=== PATIENT | male | born 1950 | race Caucasian/White ===

== ENCOUNTER → 2016-03-23 | Outpatient (CLI) | payer MEDICARE, OTHER ==
[~2016-03-23] MED LIST: CITA10TA4 PO
== END ==
LOC: CLAB 09:02
PROVIDERS: ATTEND Specialist
DX: B18.2 Chronic viral hepatitis C (principal); G47.00 Insomnia, unspecified; K58.9 Irritable bowel syndrome, unspecified; R53.83 Other fatigue; C61 Malignant neoplasm of prostate; K40.30 Unilateral inguinal hernia, with obstruction, without gangrene, not specified as recurrent; D07.5 Carcinoma in situ of prostate
CPT/HCPCS: 36415; 82140